=== PATIENT | male | born 1990 | race Caucasian/White ===

== ENCOUNTER 2017-11-19 04:28 | Emergency (ER) | payer BC ==
[2017-11-19] MEDS ORDERED: Ibuprofen 200 MG TAB ONE (04:57)
[2017-11-19] MEDS ORDERED: Ibuprofen 800 MG TAB ONE (04:57)
== END 2017-11-19 05:03 | disposition home or self-care (01) ==
LOC: SCSER 04:28
DX: M62.838 Other muscle spasm (principal); F17.210 Nicotine dependence, cigarettes, uncomplicated
CPT/HCPCS: 99283